=== PATIENT | female | born 2000 | race Caucasian/White ===

== ENCOUNTER 2020-01-23 12:53 | Emergency (ER) | payer OTHER ==
[2020-01-23 13:01] VITALS: PULSE 86
[2020-01-23] MEDS ORDERED: PROPARACAINE 0.5% OPHTH DROPS 15 ML BTL BOTH EYES STA (13:19)
[2020-01-23] MEDS ORDERED: FLUORESCEIN STRIPS 1 MG STRIP LEFT EYE ONE (13:19)
[2020-01-23] MEDS ORDERED: METOCLOPRAMIDE 5 MG/ML 2 ML VIAL IVP STA (13:38)
[2020-01-23] MEDS ORDERED: KETOROLAC 15 MG/ML 1 ML VIAL IVP STA (13:38)
[2020-01-23] MEDS ORDERED: diphenhydrAMINE 50 MG/ML 1 ML VIAL IVP STA (13:38)
--- NOTE | 2020-01-23 14:11 | ED ---
Eye Problem HPI - General Chief complaint: Eye Problems Stated complaint: vision problem Time Seen by Provider: 01/23/20 13:16 Source: patient, RN notes reviewed, old records reviewed Mode of arrival: ambulatory Limitations: no limitations - History of Present Illness Initial comments: Patient is a 19-year-old female who presents emergency department today for evaluation for left eye visual disturbances. She reports in the past 5 months she's noticed she had floaters within her eye. She states today she woke up with a dull headache and complaint of central vision dim this with away halo around this. Patient states she has no pain with eye movement. She denies any pain with bright lights. She states that she has had no fevers or chills. She reports she has a dull pressure-like headache behind the left eye rating it a 5 out of 10. Patient states that she does wear glasses. She's not had an eye doctor appointment in over a year. - Related Data Home Medications Medication Instructions Recorded Confirmed Multivitamins, Thera [Multivitamin 1 tab PO DAILY 01/23/20 01/23/20 (formulary)] metroNIDAZOLE [Flagyl] 500 mg PO BID 01/23/20 01/23/20 Allergies Allergy/AdvReac Type Severity Reaction Status Date / Time No Known Allergies Allergy Verified 01/23/20 15:02 Review of Systems ROS Statement: Those systems with pertinent positive or pertinent negative responses have been documented in the HPI. ROS Other: All systems not noted in ROS Statement are negative. Past Medical History Past Medical History: No Reported History History of Any Multi-Drug Resistant Organisms: None Reported Past Surgical History: No Surgical Hx Reported Smoking Status: Vaper Past Alcohol Use History: None Reported Past Drug Use History: None Reported General Exam - General Exam Comments Initial Comments: 19-year-old female. Alert and oriented. Limitations: no limitations General appearance: alert, in no apparent distress Head exam: Present: atraumatic, normocephalic, normal inspection Eye exam: Present: normal appearance, PERRL, EOMI, other (Pupils are equal and reactive. No pain with extra ocular eye movements. Patient has a pressure of 18 on the left eye and 11 on the right eye with using Mukund-Pen. No signs of corneal abrasion or foreign body. Funduscopic exam was limited/). Absent: scleral icterus, conjunctival injection, periorbital swelling ENT exam: Present: normal exam, mucous membranes moist Neck exam: Present: normal inspection. Absent: tenderness, meningismus, lymphadenopathy Respiratory exam: Present: normal lung sounds bilaterally. Absent: respiratory distress, wheezes, rales, rhonchi, stridor Cardiovascular Exam: Present: regular rate, normal rhythm, normal heart sounds. Absent: systolic murmur, diastolic murmur, rubs, gallop, clicks Extremities exam: Present: normal inspection, full ROM, normal capillary refill. Absent: tenderness, pedal edema, joint swelling, calf tenderness Back exam: Present: normal inspection Neurological exam: Present: alert, oriented X3, CN II-XII intact Psychiatric exam: Present: normal affect, normal mood Course Vital Signs 01/23/20 01/23/20 12:57 15:34 Temperature 98.2 F 99.5 F Pulse Rate 86 86 Respiratory 20 19 Rate Blood Pressure 122/82 113/66 O2 Sat by Pulse 100 99 Oximetry - Reevaluation(s) Reevaluation #1: 01/23/20 14:51 Ultrasound completed over the left eye shows no signs of retinal detachment or vitreous hemorrhage. States that she is feeling improved with her headache after Reglan and Benadryl this time and states no further visual change. Medical Decision Making - Medical Decision Making 19-year-old female presents for shortness today with complaints of a headache behind her left eye visual disturbances starting today at 9 AM. She also reports months of floaters and she does wear glasses. Visual acuity was intact to documented by nursing staff. intraocular pressure on the left was 18 and right was 11. She no pain with extraocular movement. [place] eye exam was normal. I evaluated the Patient with Dr. Dexter and recommend treatment for migraine and reevaluation. After Patient received primary medication she reports that her visual acuity return should, and no further visual disturbances. Patient states that she has no eye pain. I did advise the Patient follow-up with ophthalmology in regards to his findings as possible as well as her history of floaters. The Patient had a CT of the brain which was negative for acute process. Should no other acute neurological deficits. I discussed return parameters and close follow-up. - Lab Data Lab Results 01/23/20 Range/Units 13:48 Urine HCG, Qual Not Detected (Not Detectd) Disposition Clinical Impression: Visual changes, Headache Disposition: HOME SELF-CARE Condition: Fair Instructions (If sedation given, give patient instructions): Ocular Migraine (ED) Additional Instructions: Please follow up with ophthalmology. Please return to the emergency room if your symptoms increase or worsen or for any other concerns. Is patient prescribed a controlled substance at d/c from ED?: No Referrals: Kermit Brooks MD [Primary Care Provider] - 1-2 days Octavio Valente MD [STAFF PHYSICIAN] - 1-2 days Time of Disposition: 15:21
--- NOTE | 2020-01-23 15:13 | CT ---
EXAMINATION TYPE: CT brain wo con DATE OF EXAM: 01/23/2020 COMPARISON: None HISTORY: headache, dizziness CT DLP: 1100.4 mGycm. Automated Exposure Control for Dose Reduction was Utilized. TECHNIQUE: CT scan of the head is performed without contrast. FINDINGS: There is no acute intracranial hemorrhage, mass effect, or midline shift identified. The ventricles and sulci are within normal limits in size. The globes are intact and the visualized sin uses are clear. Craniocervical junction maintained. IMPRESSION: No acute intracranial hemorrhage, mass effect, or midline shift is seen.
[2020-01-23 15:35] VITALS: BP 113/66; RESP 19; TEMP 99.5
== END 2020-01-23 15:41 | disposition home or self-care (01) ==
LOC: EC 12:53
DX: H53.9 Unspecified visual disturbance (principal); R51.9 Headache, unspecified; F17.290 Nicotine dependence, other tobacco product, uncomplicated
CPT/HCPCS: 81025; 70450; 99284; 96374; 96375 ×2; J1200; J2765; J1885

== ENCOUNTER → 2022-01-08 | Outpatient (CLI) | payer BC ==
--- NOTE | 2022-01-08 12:18 | CT ---
EXAMINATION TYPE: CT soft tissue neck w con DATE OF EXAM: 01/08/2022 COMPARISON: None HISTORY: enlarged lymph nodes CT DLP: 659 mGycm CONTRAST: CT scan of the neck is performed with IV Contrast, patient injected with 70 mL of Isovue 300. Contrast enhanced CT of the neck was performed from the skull base through the lung apices. AIRWAY: The supraglottic, glottic, and subglottic portions of the airway appear patent and free of mass. SALIVARY GLANDS: The submandibular and parotid glands are free of mass or inflammatory process. THYROID GLAND: No nodules or masses seen. LYMPH NODES: No adenopathy seen greater than 1cm. There are several bilateral subcentimeter lymph nod es within the internal jugular chains measuring up to 7 mm on the right and 8.5 mm on the left. Sever al 7 and 6 mm lymph nodes are also seen within the posterior triangles bilaterally. LUNG APICES: No nodule or mass is seen. OTHER: Vascular structures are patent. No significant degenerative change of the cervical spine. N o abscess seen. IMPRESSION: There are several bilateral subcentimeter lymph nodes within the internal jugular chains measuring up to 7 mm on the right and 8.5 mm on the left. Several 7 and 6 mm lymph nodes are also seen within the posterior triangles bilaterally.
== END | disposition home or self-care (01) ==
LOC: RADCTMAIN 11:27
PROVIDERS: ATTEND Family Medicine
DX: R22.1 Localized swelling, mass and lump, neck (principal)
CPT/HCPCS: 70491; Q9967